=== PATIENT | male | born 1955 | race Caucasian/White ===

== ENCOUNTER 2020-07-16 17:47 | Inpatient (IN) | payer MEDICARE, MEDICAID ==
[~2020-07-16] VITALS: Ht 180.3 cm; Wt 62.4 kg
[~2020-07-16 17:47] MED LIST: AZI25OT PO; GABA-532 PO; LORA-269 PO; OXYC-145 PO; PRED10TA PO
[2020-07-16] MEDS ORDERED: ipratropium/albuterol 3ml nebule NEB PRN (19:25)
--- NOTE | 2020-07-16 19:26 | NUR ---
DR. BANKS AT BEDSIDE TO EVALUATE PT. HE REPORTS TO PT HE HAS A LEFT PNEUMOTHORAX. PT REPORTS HE HAS HAD THIS IN THE PAST AND DID HAVE A CHEST TUBE IN THE PAST. MD REPROTS PT WILL NEED A CHEST TUBE. PTS RA SATS 94% . PLACED ON 3 LITERS PER MD REQUEST AND SATS NOW 98%.
[2020-07-16 19:35] LABS: BASOPHILS % (AUTO) 0.9 % (0-1); EOSINOPHILS # (AUTO) 0.1 X10'3 (0-0.9); EOSINOPHILS % (AUTO) 1.5 % (0-6); HEMATOCRIT 39.1 % (42.0-52.0); HEMOGLOBIN 13.3 g/dl (14.0-17.9); LYMPHOCYTES # (AUTO) 1.1 X10'3 (1.1-4.8); LYMPHOCYTES % (AUTO) 22.1 % (21-51); MEAN CORPUSCULAR HEMOGLOBIN 32.8 PG (27.0-31.0); MEAN CORPUSCULAR HGB CONC 34.1 g/dL (33.0-36.5); MEAN CORPUSCULAR VOLUME 96.2 FL (78-98); MEAN PLATELET VOLUME 6.8 FL (7.4-10.4); MONOCYTES # (AUTO) 1.1 X10'3 (0-0.9); MONOCYTES % (AUTO) 22.7 % (2-12); NEUTROPHILS # (AUTO) 2.7 X10'3 (1.8-7.7); NEUTROPHILS % (AUTO) 52.8 % (42-75); PLATELET COUNT 233 X10'3 (140-440); RED BLOOD COUNT 4.07 X10'6 (4.70-6.10); RED CELL DISTRIBUTION WIDTH 14.8 % (11.5-14.5)
[2020-07-16 19:49] LABS: ALANINE AMINOTRANSFERASE 56 U/L (12-78); ALBUMIN 3.9 G/DL (3.4-5.0); ALBUMIN/GLOBULIN RATIO 0.9 (1.1-1.5); ALKALINE PHOSPHATASE 81 IU/L (46-116); ANION GAP 2 (8-16); ASPARTATE AMINO TRANSFERASE 48 U/L (10-37); BILIRUBIN,TOTAL 0.5 MG/DL (0.1-1.0); BLOOD UREA NITROGEN 7 MG/DL (7-18); BUN/CREATININE RATIO 11.7 (5.4-32.0); CALCIUM 9.1 MG/DL (8.5-10.1); CHLORIDE 88 MMOL/L (99-107); GLUCOSE 76 MG/DL (70-104); POTASSIUM 3.8 MMOL/L (3.5-5.1); TOTAL CARBON DIOXIDE 29.7 MMOL/L (24-32); TOTAL PROTEIN 8.2 G/DL (6.4-8.2); eGFR > 90 ML/MIN
[2020-07-16 19:51] LABS: SODIUM 120 MMOL/L (135-145)
[2020-07-16 19:56] LABS: C-REACTIVE PROTEIN 0.87 MG/DL (0.0-0.5); LACTATE DEHYDROGENASE 166 U/L (85-227)
[2020-07-16 20:17] LABS: CLARITY,URINE CLEAR (Clear); COLOR,URINE YELLOW (Yellow); GLUCOSE, URINE NEGATIVE (Neg); KETONES,URINE TRACE mg/dl (Neg); LEUKOCYTE ESTERASE ,URINE NEGATIVE (Neg); NITRITES, URINE NEGATIVE (Neg); OCCULT BLOOD,URINE TRACE-INTACT (Neg); PH,URINE 6.5 (4.8-8.0); PROTEIN,URINE 30 mg/dl (Neg); UROBILINOGEN,URINE 0.2 E.U/dL (0.2-1.0)
[2020-07-16 20:18] LABS: UA COLLECTION TYPE URINAL
--- NOTE | 2020-07-16 20:21 | NUR ---
PT IN ROOM NOW, BACK FROM CHEST CT. DR. BANKS AWAITING READ FROM CT FOR FURTHER PLAN FOR CHEST TUBE PLACMEENT.
--- NOTE | 2020-07-16 20:41 | NUR ---
relieving RN for break, pt is resting quietly on gurney, waiting for CT results, pursed lip breathing, on 3 liters 02 nasal cannula, no resp distress, talking 5-6 word sentences, gave pt warm blanket
--- NOTE | 2020-07-16 20:45 | NUR ---
COVID SWAB NEGATIVE. PT TAKEN OUT OF ISOLATION PRECATIONS. PT IS A&OX4 AND POLITE AND COOPERATIVE. SATS ON 3 L 97%. rr 28-30.
[2020-07-16 20:51] LABS: SQUAMOUS EPITHELIAL CELL,UR FEW /LPF (FEW)
[2020-07-16 20:52] LABS: BACTERIA,URINE 1+ /HPF (Neg); WBC,URINE 0-4 /HPF (0-4)
[2020-07-16 20:53] LABS: CELLULAR CAST 0-4 /LPF (NEGATIVE); RBC,URINE 0-2 /HPF (0-2)
[2020-07-16] MEDS ORDERED: NO HOME MEDS (21:07)
--- NOTE | 2020-07-16 21:07 | NUR ---
PT HAS NO CURRENT PERSCRIPTIONS. STATES HE DOES NOT HAVE A PCP AND HAS BEEN USING THE MEDICATIONS THAT WERE PERSCRIBED TO HIM BY US UPON HIS LAST DC "A MONTH OR TWO AGO". THIS WAS AND MDI AND NEBULIZER TREATMENTS, HE IS NOW OUT OF THEM. STATES HE HAS A WORKING NEBULIZER MACHINE BUT NEEDS NEW HOSES AND MOUTH PEICES. ALSO STATES HE NEEDS NEW HOSE AND MOUTH PEICE FOR HIS CPAP MACHINE. REPROTS HE DOES USE SUPP O2 PRN AND SOMETIMES AT NIGHT, BUT HAS NO CURRENT PERSCRIPTION.
--- NOTE | 2020-07-16 21:16 | NUR ---
verbal received for msiv 4 mg x1 now for pts chest pain from dr. paez.
[2020-07-16] MEDS ORDERED: morphine 4 MG/ML inj SYRINge IV ONE (21:20)
[2020-07-16 22:04] LABS: GIANT PLATELET FEW; PLATELET ESTIMATE NORMAL; TOTAL CELLS COUNTED 100
[2020-07-16 22:06] LABS: TARGET CELLS 1+; TEAR DROP CELLS FEW
[2020-07-16 22:07] LABS: TOXIC GRANULATION 1+; TOXIC VACUOLATION FEW
[2020-07-16] MEDS ORDERED: MIDAZolam 5mg/ml 2ml vial IV ONE (23:00)
--- NOTE | 2020-07-16 23:08 | NUR ---
DR. BANKS AND Usman MCKEON NOW AT BEDSIDE PERPARING TO PLACE CHEST TUBE. PT JUST GIVEN VERSED 4 MG IV. VSS.
--- NOTE | 2020-07-16 23:25 | NUR ---
Successful placement of Urasil chest tube to left upper chest. Post procedure cxr just completed. Pt remains sleepy after versed 4 mg, but is arousable and with stable vs and RR 14 and remains on 3 L NC at 98%.
[2020-07-17] MEDS ORDERED: acetaminophen 325mg tablet PO PRN (00:15)
[2020-07-17] MEDS ORDERED: magnesium hydroxide 30ml (MOM) UD suspension PO PRN (00:15)
[2020-07-17] MEDS ORDERED: mag hydrox/Alum hydrox/simeth 30ml oral suspension PO PRN (00:15)
--- NOTE | 2020-07-17 00:23 | NUR ---
PT PROVIDED SANDWICH AND CRACKERS AND MILK HE REPORTS HE IS HUNGRY. CURRENT VSS. PT WITH NO COMPLAINTS AT THIS TIME. AWAITING IPA.
[2020-07-17] MEDS: normal saline 1000ml 1,000 ML IV SCH ×2 (00:36→17:10)
[2020-07-17] MEDS: LORazepam 2 mg/ml vial IV PRN ×7 (01:03→20:55)
--- NOTE | 2020-07-17 02:29 | NUR ---
Pt with stable vs. Given ativan 2 mg iv and tylenol 650 mg 1 hr ago. Pt was havinig some hand tremors and anxiety and some moderate pain to his chest tube site. Pt now sleeping, RR 14 and sats on 2 liters nc 95%.
--- NOTE | 2020-07-17 02:35 | NUR ---
Pts fo2 sat finger probe adjusted and now showinig 100% on 2 liters nc. Pt is intermittently snoring.
--- NOTE | 2020-07-17 04:11 | NUR ---
Per Nursing Heating Fixture Tender, Pt to likely have a room assignment before shift change. Pt continues sleeping. VSS o2 sats 100% on 2 liters nc.
--- NOTE | 2020-07-17 04:42 | NUR ---
report to carlos surgical brace maker. iap 346b. ra sats 100% on 2 liters.
--- NOTE | 2020-07-17 04:43 | NUR ---
Patient in room ED 9. I have received report from Deidre Fraser in the Er and had the opportunity to ask questions and will assume patient care upon arrival to the floor.. Addendum: 07/17/20 at 0444 by Abbey Munroe RN Amended: Links added.
--- NOTE | 2020-07-17 05:05 | NUR ---
PT WITH CALL LIGHT IN PLACE GIVEN WATER VOIDED IN THE URINAL 120CC MED YELLOW URINE AND POSITIONED TO COMFORT.
[2020-07-17 05:17] VITALS: BP 137/87
--- NOTE | 2020-07-17 06:37 | NUR ---
Problems reprioritized. Patient report given, questions answered & plan of care reviewed with REBA MAXWELL. Addendum: 07/17/20 at 0638 by Abbey Munroe RN Amended: Links added.
[2020-07-17 07:00] VITALS: BP 133/92
--- NOTE | 2020-07-17 07:09 | NUR ---
Patient in room [facility] 346. I have received report from FROILAN MAXWELL and had the opportunity to ask questions and assume patient care.
[2020-07-17] MEDS ORDERED: LIDOcaine 1% W/epiNEPHrine 1:100,000 20ml vial ONE (08:00)
[2020-07-17] MEDS: thiamine 100mg tablet PO SCH (08:03)
[2020-07-17 09:36] LABS: BASOPHILS % (AUTO) 0.3 % (0-1); EOSINOPHILS # (AUTO) 0.1 X10'3 (0-0.9); HEMATOCRIT 35.9 % (42.0-52.0); HEMOGLOBIN 12.1 g/dl (14.0-17.9); LYMPHOCYTES # (AUTO) 0.8 X10'3 (1.1-4.8); LYMPHOCYTES % (AUTO) 12.6 % (21-51); MEAN CORPUSCULAR HEMOGLOBIN 32.8 PG (27.0-31.0); MEAN CORPUSCULAR HGB CONC 33.7 g/dL (33.0-36.5); MEAN CORPUSCULAR VOLUME 97.2 FL (78-98); MONOCYTES # (AUTO) 1.1 X10'3 (0-0.9); MONOCYTES % (AUTO) 18.4 % (2-12); NEUTROPHILS # (AUTO) 4.1 X10'3 (1.8-7.7); NEUTROPHILS % (AUTO) 66.7 % (42-75); PLATELET COUNT 210 X10'3 (140-440); WHITE BLOOD COUNT 6.2 X10'3 (4.5-11.0)
[2020-07-17 09:41] LABS: ALBUMIN 3.3 G/DL (3.4-5.0); ANION GAP 4 (8-16); BLOOD UREA NITROGEN 16 MG/DL (7-18); BUN/CREATININE RATIO 20.5 (5.4-32.0); CALCIUM 8.6 MG/DL (8.5-10.1); CHLORIDE 89 MMOL/L (99-107); CREATININE 0.78 MG/DL (0.60-1.10); GLUCOSE 106 MG/DL (70-104); POTASSIUM 3.9 MMOL/L (3.5-5.1); SODIUM 127 MMOL/L (135-145); TOTAL CARBON DIOXIDE 33.6 MMOL/L (24-32); eGFR > 90 ML/MIN
[2020-07-17 10:36] LABS: PLATELET ESTIMATE NORMAL; TOTAL CELLS COUNTED 100
[2020-07-17 11:00] VITALS: BP 129/81
--- NOTE | 2020-07-17 12:04 | NUR ---
Patient in room LOG[facility] 346. I have received report from Ky MAXWELL and had the opportunity to ask questions and assume patient care.
--- NOTE | 2020-07-17 12:33 | NUR ---
Malnutrition consult: Pt reports 2-13 lb wt loss with decreased appetite per malnutrition risk screen with RN. Current documented wt is stable with documented wt hx at previous admissions. Pt meeting estimated nutrient needs at this time documented with 100% PO intake on regular diet and provided with HS snacks last night d/t c/o hunger per RN notes. Pt with no documented decrease in muscle strength or edema. Appears WDWN per ED report. Pt currently lacks a minimum of two criteria for malnutrition. Will continue to follow. Addendum: 07/17/20 at [address] Amended: Links added.
--- NOTE | 2020-07-17 12:52 | NUR ---
reviewed student nurse charting
--- NOTE | 2020-07-17 14:52 | NUR ---
MESSAGE: [id number] Re: Jazz Rubi 346b Patient states he is having some back pain and is requesting Percocet 5mg he said that is what he normally takes for pain.
[2020-07-17 18:00] VITALS: BP 139/95
--- NOTE | 2020-07-17 18:07 | NUR ---
Problems reprioritized. Patient report given, questions answered & plan of care reviewed with Ky RN.
--- NOTE | 2020-07-17 18:41 | NUR ---
Problems reprioritized. Patient report given, questions answered & plan of care reviewed with Caleb MAXWELL.
[2020-07-17] MEDS: albuterol 2.5 MG/3 ML nebule NEB PRN (19:15)
--- NOTE | 2020-07-17 19:26 | NUR ---
Patient in room [facility] 346. I have received report from HANS Mcpherson and had the opportunity to ask questions and assume patient care.
[2020-07-18 00:33] VITALS: BP 125/86
[2020-07-18 04:51] LABS: BASOPHILS % (AUTO) 0.6 % (0-1); EOSINOPHILS # (AUTO) 0.1 X10'3 (0-0.9); EOSINOPHILS % (AUTO) 2.5 % (0-6); HEMATOCRIT 36.2 % (42.0-52.0); LYMPHOCYTES % (AUTO) 22.1 % (21-51); MEAN CORPUSCULAR HEMOGLOBIN 32.5 PG (27.0-31.0); MEAN CORPUSCULAR HGB CONC 33.3 g/dL (33.0-36.5); MEAN CORPUSCULAR VOLUME 97.8 FL (78-98); MEAN PLATELET VOLUME 7.1 FL (7.4-10.4); MONOCYTES % (AUTO) 21.7 % (2-12); NEUTROPHILS # (AUTO) 2.4 X10'3 (1.8-7.7); NEUTROPHILS % (AUTO) 53.1 % (42-75); PLATELET COUNT 186 X10'3 (140-440); RED CELL DISTRIBUTION WIDTH 14.5 % (11.5-14.5); WHITE BLOOD COUNT 4.4 X10'3 (4.5-11.0)
[2020-07-18 05:06] LABS: ALANINE AMINOTRANSFERASE 37 U/L (12-78); ALBUMIN 3.2 G/DL (3.4-5.0); ALBUMIN/GLOBULIN RATIO 0.9 (1.1-1.5); ALKALINE PHOSPHATASE 65 IU/L (46-116); ANION GAP 3 (8-16); ASPARTATE AMINO TRANSFERASE 32 U/L (10-37); BILIRUBIN,TOTAL 0.6 MG/DL (0.1-1.0); BLOOD UREA NITROGEN 11 MG/DL (7-18); BUN/CREATININE RATIO 15.7 (5.4-32.0); CALCIUM 8.2 MG/DL (8.5-10.1); CHLORIDE 94 MMOL/L (99-107); GLUCOSE 90 MG/DL (70-104); POTASSIUM 4.3 MMOL/L (3.5-5.1); SODIUM 127 MMOL/L (135-145); TOTAL CARBON DIOXIDE 29.8 MMOL/L (24-32); TOTAL PROTEIN 6.8 G/DL (6.4-8.2); eGFR > 90 ML/MIN
[2020-07-18] MEDS: LORazepam 2 mg/ml vial IV PRN (05:32)
--- NOTE | 2020-07-18 06:00 | NUR ---
Patient in room [facility] 346. I have received report from HANS Ellis and had the opportunity to ask questions and assume patient care.
--- NOTE | 2020-07-18 06:32 | NUR ---
Problems reprioritized. Patient report given, questions answered & plan of care reviewed with HANS Zelaya.
[2020-07-18 07:00] VITALS: BP 112/78
[2020-07-18] MEDS: thiamine 100mg tablet PO SCH (08:13)
[2020-07-18] MEDS: normal saline 1000ml 1,000 ML IV SCH ×3 (08:13→23:02)
[2020-07-18] MEDS: LORazepam 1 MG tablet PO PRN ×2 (08:17→18:36)
[2020-07-18 10:10] LABS: ANISOCYTOSIS FEW; PLATELET ESTIMATE NORMAL; TOTAL CELLS COUNTED 100
[2020-07-18 11:00] VITALS: BP 108/74
[2020-07-18] MEDS: albuterol 2.5 MG/3 ML nebule NEB PRN (16:24)
--- NOTE | 2020-07-18 17:06 | NUR ---
Student documentation: I have reviewed interventions, assessments performed and documented by [facility] Student Freida.
--- NOTE | 2020-07-18 17:06 | NUR ---
Student documentation: I have reviewed interventions, assessments performed and documented by [facility] Student Monse.
--- NOTE | 2020-07-18 18:46 | NUR ---
Problems reprioritized. Patient report given, questions answered & plan of care reviewed with Evangelina jay RN.
--- NOTE | 2020-07-18 18:48 | NUR ---
Patient in room LOG[facility] 346. I have received report from HANS Montaño and had the opportunity to ask questions and assume patient care.
[2020-07-18 19:00] VITALS: BP 148/86
[2020-07-18] MEDS: HYDROcodone/acetaminophen 5mg/325mg tablet PO PRN (21:05)
[2020-07-18] MEDS: Melatonin 3mg tablet PO SCH (21:06)
[2020-07-18 23:00] VITALS: BP 133/78
[2020-07-19] MEDS: HYDROcodone/acetaminophen 5mg/325mg tablet PO PRN ×4 (05:53→21:06)
--- NOTE | 2020-07-19 06:00 | NUR ---
Problems reprioritized. Patient report given, questions answered & plan of care reviewed with HANS Montaño.
--- NOTE | 2020-07-19 06:00 | NUR ---
Patient in room LOGAN 346. I have received report from Evangelina Du RN and had the opportunity to ask questions and assume patient care.
[2020-07-19 06:12] LABS: BASOPHILS % (AUTO) 0.7 % (0-1); EOSINOPHILS # (AUTO) 0.1 X10'3 (0-0.9); EOSINOPHILS % (AUTO) 2.4 % (0-6); HEMATOCRIT 33.4 % (42.0-52.0); HEMOGLOBIN 11.4 g/dl (14.0-17.9); LYMPHOCYTES # (AUTO) 0.9 X10'3 (1.1-4.8); LYMPHOCYTES % (AUTO) 20.4 % (21-51); MEAN CORPUSCULAR HEMOGLOBIN 33.8 PG (27.0-31.0); MEAN CORPUSCULAR HGB CONC 34.2 g/dL (33.0-36.5); MEAN CORPUSCULAR VOLUME 98.8 FL (78-98); MEAN PLATELET VOLUME 7.3 FL (7.4-10.4); MONOCYTES % (AUTO) 22.1 % (2-12); NEUTROPHILS # (AUTO) 2.4 X10'3 (1.8-7.7); NEUTROPHILS % (AUTO) 54.4 % (42-75); PLATELET COUNT 197 X10'3 (140-440); RED BLOOD COUNT 3.38 X10'6 (4.70-6.10); RED CELL DISTRIBUTION WIDTH 14.7 % (11.5-14.5); WHITE BLOOD COUNT 4.4 X10'3 (4.5-11.0)
[2020-07-19 06:14] LABS: ALANINE AMINOTRANSFERASE 34 U/L (12-78); ALBUMIN 2.9 G/DL (3.4-5.0); ALBUMIN/GLOBULIN RATIO 0.8 (1.1-1.5); ALKALINE PHOSPHATASE 56 IU/L (46-116); ANION GAP 3 (8-16); ASPARTATE AMINO TRANSFERASE 29 U/L (10-37); BILIRUBIN,TOTAL 0.5 MG/DL (0.1-1.0); BLOOD UREA NITROGEN 11 MG/DL (7-18); BUN/CREATININE RATIO 15.1 (5.4-32.0); CHLORIDE 93 MMOL/L (99-107); CREATININE 0.73 MG/DL (0.60-1.10); GLUCOSE 98 MG/DL (70-104); POTASSIUM 4.2 MMOL/L (3.5-5.1); SODIUM 126 MMOL/L (135-145); TOTAL CARBON DIOXIDE 29.9 MMOL/L (24-32); TOTAL PROTEIN 6.4 G/DL (6.4-8.2); eGFR > 90 ML/MIN
[2020-07-19 07:11] LABS: TOTAL CELLS COUNTED 100
[2020-07-19 07:12] LABS: PLATELET ESTIMATE NORMAL
[2020-07-19] MEDS: LORazepam 1 MG tablet PO PRN ×2 (07:22→23:09)
[2020-07-19] MEDS: thiamine 100mg tablet PO SCH (07:22)
[2020-07-19 08:00] VITALS: BP 144/97
[2020-07-19 12:00] VITALS: BP 121/87
[2020-07-19] MEDS: normal saline 1000ml 1,000 ML IV SCH (14:38)
--- NOTE | 2020-07-19 17:33 | NUR ---
Student documentation: I have reviewed all interventions, assessments performed and documented by Monse FULLER from [facility].
[2020-07-19 18:00] VITALS: BP 154/90
--- NOTE | 2020-07-19 18:25 | NUR ---
Patient in room LOG[facility] 346. I have received report from HANS Montaño and had the opportunity to ask questions and assume patient care.
--- NOTE | 2020-07-19 18:26 | NUR ---
Problems reprioritized. Patient report given, questions answered & plan of care reviewed with HANS Carrillo.
[2020-07-19] MEDS: Melatonin 3mg tablet PO SCH (20:35)
[2020-07-20] VITALS (22 sets, daily range): BP systolic 113–207; BP diastolic 59–143
[2020-07-20] MEDS: normal saline 1000ml 1,000 ML IV SCH ×2 (03:52→22:03)
[2020-07-20] MEDS ORDERED: famotidine 10mg tablet PO ONE (06:00)
[2020-07-20] MEDS ORDERED: ringers solution, lacted 1,000 ML IV ONE (06:00)
[2020-07-20 06:11] LABS: BASOPHILS % (AUTO) 0.6 % (0-1); EOSINOPHILS # (AUTO) 0.1 X10'3 (0-0.9); EOSINOPHILS % (AUTO) 3.4 % (0-6); HEMOGLOBIN 12.1 g/dl (14.0-17.9); LYMPHOCYTES # (AUTO) 0.8 X10'3 (1.1-4.8); LYMPHOCYTES % (AUTO) 20.1 % (21-51); MEAN CORPUSCULAR HEMOGLOBIN 32.9 PG (27.0-31.0); MEAN CORPUSCULAR HGB CONC 33.5 g/dL (33.0-36.5); MEAN PLATELET VOLUME 7.1 FL (7.4-10.4); MONOCYTES % (AUTO) 23.8 % (2-12); NEUTROPHILS # (AUTO) 2.1 X10'3 (1.8-7.7); NEUTROPHILS % (AUTO) 52.1 % (42-75); PLATELET COUNT 211 X10'3 (140-440); RED BLOOD COUNT 3.67 X10'6 (4.70-6.10); RED CELL DISTRIBUTION WIDTH 14.5 % (11.5-14.5); WHITE BLOOD COUNT 4.1 X10'3 (4.5-11.0)
[2020-07-20 06:21] LABS: ALANINE AMINOTRANSFERASE 41 U/L (12-78); ALBUMIN 3.1 G/DL (3.4-5.0); ALBUMIN/GLOBULIN RATIO 0.8 (1.1-1.5); ALKALINE PHOSPHATASE 58 IU/L (46-116); ANION GAP 4 (8-16); ASPARTATE AMINO TRANSFERASE 39 U/L (10-37); BILIRUBIN,TOTAL 0.6 MG/DL (0.1-1.0); BLOOD UREA NITROGEN 10 MG/DL (7-18); BUN/CREATININE RATIO 13.9 (5.4-32.0); CALCIUM 8.3 MG/DL (8.5-10.1); CHLORIDE 94 MMOL/L (99-107); CREATININE 0.72 MG/DL (0.60-1.10); GLUCOSE 82 MG/DL (70-104); POTASSIUM 4.5 MMOL/L (3.5-5.1); SODIUM 127 MMOL/L (135-145); TOTAL CARBON DIOXIDE 28.9 MMOL/L (24-32); TOTAL PROTEIN 6.9 G/DL (6.4-8.2); eGFR > 90 ML/MIN
--- NOTE | 2020-07-20 06:30 | NUR ---
Problems reprioritized. Patient report given, questions answered & plan of care reviewed with HANS Villagomez.
--- NOTE | 2020-07-20 06:45 | NUR ---
Patient in room LOG[facility] 346. I have received report from Lorena MAXWELL and had the opportunity to ask questions and assume patient care.
[2020-07-20] MEDS: thiamine 100mg tablet PO SCH (08:24)
--- NOTE | 2020-07-20 08:32 | NUR ---
PAGER ID: [phone] MESSAGE: [email or web address], Henrik Rubi. Pt has allergies to Hydrocodone and Codeine, yet has [place] ordered for pain and has reported itching after taking it. Please order something else for pain management. Thank you! Dahlia [phone] Surgical
--- NOTE | 2020-07-20 10:29 | NUR ---
Dr Powell at bedside, reviewed pt's med history and prior admits and states it is safe to give pt Clinton, continue pain meds as ordered.
[2020-07-20] MEDS ORDERED: BUPIVAcaine/PF 2.5 mg/ml (0.25%) 30ml vial ONE (10:42)
[2020-07-20] MEDS ORDERED: BUPIVAcaine/PF 2.5mg/ml (0.25%) 10ml vial ONE (10:42)
[2020-07-20] MEDS ORDERED: sterile Talc 3 GM powder vial (for IntraPleural Use ONLY) ONE (10:42)
[2020-07-20] MEDS: HYDROcodone/acetaminophen 5mg/325mg tablet PO PRN (10:43)
[2020-07-20] MEDS ORDERED: BUPIVACAINE liposomal/PF 13.3 MG/ML vial IM ONE (10:43)
--- NOTE | 2020-07-20 11:30 | NUR ---
1100 Report phoned to Graeme MAXWELL in Recovery, with opportunity for him to ask questions, answers given. Pt down to OR 1140 via hospital bed, accompanied by hospital staff IV and chest tube intact and patent.
[2020-07-20] MEDS ORDERED: LIDOcaine 1% (10mg/ml) 2ml vial ONE (11:46)
[2020-07-20] MEDS ORDERED: fentaNYL /PF 50mcg/ml 5ml ampule ONE (11:55)
[2020-07-20] MEDS ORDERED: MIDAZolam 5mg/5ml vial ONE (11:55)
[2020-07-20] MEDS ORDERED: rocuronium 10mg/ml inj IV ONE ×3 (11:56→14:05)
[2020-07-20] MEDS ORDERED: LIDOcaine 2% (20mg/ml) 5ml vial ONE (11:56)
[2020-07-20] MEDS ORDERED: propofol inj 20 ML IV ONE (11:56)
[2020-07-20] MEDS ORDERED: ondansetron/PF 4mg/2ml inj ONE (11:56)
[2020-07-20] MEDS ORDERED: dexamethasone sod phosphate 4mg/ml inj. ONE (11:58)
[2020-07-20] MEDS ORDERED: phenylephrine 10mg/ml inj. ONE (11:58)
[2020-07-20] MEDS ORDERED: sevoflurane 250ml liquid IH ONE (11:58)
[2020-07-20 12:10] LABS: PRE OP PROTIME 10.3 SECONDS (9.0-12.0)
[2020-07-20] MEDS ORDERED: ceFAZolin 1000mg inj ONE ×2 (12:26)
[2020-07-20] MEDS ORDERED: albumin (Human) 5% 250ml 250 ML IV ONE ×2 (12:52)
[2020-07-20] MEDS ORDERED: labetalol 20mg/4ml (5mg/ml) syringe IV ONE (13:10)
[2020-07-20] MEDS ORDERED: ondansetron/PF 4mg/2ml inj IV PRN ×2 (13:40→16:25)
[2020-07-20] MEDS ORDERED: hydrALAZINE 20mg/ml inj. IV PRN (13:40)
[2020-07-20] MEDS ORDERED: midazolam 100mg in NS 100ml 100 ML IV SCH (13:40)
[2020-07-20] MEDS ORDERED: fentaNYL/PF 50MCG/1 ML 2ML syringe IV PRN ×2 (13:40)
[2020-07-20] MEDS ORDERED: ringers solution, lacted 1,000 ML IV SCH (13:40)
[2020-07-20] MEDS ORDERED: HYDROmorphone inj. 0.5 MG/0.5 ML DISP.SYRIN IV PRN ×2 (13:40)
[2020-07-20] MEDS ORDERED: fentaNYL/PF 50MCG/1 ML 2ML syringe ONE (14:28)
--- NOTE | 2020-07-20 15:30 | NUR ---
Received from OR via ICU bed, accompanied by Anesthesiologist Sheng and report given by Anesthesiolgist. VS stble, ART line zeroed and good waveform. PIV x2 LR IVF running, versed and fentanyl running per orders. Ventilator settings per orders RT at bedside hooking pt up to vent. Melgar cath draining yellow urine. Chest tube to left lateral charge, to low continuous suction no drainage. SCDs on, BLL, restraints on.
[2020-07-20] MEDS: FENTANYL-0.9 % NACL/PF 100 ML IV PRN (15:45)
[2020-07-20 15:55] LABS: ABG BASE EXCESS 0.4 mmol/L (-2.0-2.0); ABG HCO3 24.5 mmol/L (22.0-26.0); ABG OXYGEN SATURATION 99.6 % (94-97); ABG PCO2 (T) 37.9 mmHg (35.0-48.0); ABG PO2 (T) 313.8 mmHg (75.0-100.0); FCOHb 0.3 % (0.0-3.9); FLOW 30 L/min; FMetHb 0.3 % (0.0-1.5); PEEP 5 cm H2O; RESPIRATORY RATE 12 b/min; TIDAL VOLUME 600 mL; TOTAL HEMOGLOBIN 11.3 G/dl (14.0-18.0)
[2020-07-20] MEDS ORDERED: niCARDipine-NS 40mg/200ml IVPB 250 ML IV SCH (15:55)
[2020-07-20] MEDS: labetalol 20mg/4ml (5mg/ml) syringe IV PRN ×3 (15:55→16:08)
[2020-07-20] MEDS ORDERED: niCARDipine-NS 40mg/200ml IVPB 200 ML IV ONE (15:59)
[2020-07-20] MEDS ORDERED: niCARdipine I.V. 50 MG in normal saline 250ml IV soln 230 ML IV SCH (16:00)
--- NOTE | 2020-07-20 16:10 | NUR ---
Pt became hypertensive, given labetolol and continues to increase. Dr Mohan at bedside, ordered Cardene drip. Anesthesia was called, he said okay to give another dose of labetalol, then hydralazine, and to continue with orders to use cardene.
[2020-07-20] MEDS ORDERED: propofol 1000mg/100ml bottle 100 ML IV ONE (16:19)
--- NOTE | 2020-07-20 16:20 | NUR ---
Dr Hauser at bedside, stated to DC versed and switch with propofol or "pt will be asleep till Thursday". Also states to bolus with 50mcg of fentanyl and to use hydralazine for BP if needed.
[2020-07-20] MEDS ORDERED: metoclopramide 5 mg/ml inj IV PRN (16:25)
[2020-07-20] MEDS ORDERED: naloxone 0.4 mg/ml inj IV PRN (16:25)
[2020-07-20] MEDS ORDERED: CADD PCA waste documentation MC PRN (16:25)
[2020-07-20] MEDS: propofol 1000mg/100ml bottle 100 ML IV SCH ×2 (16:29→21:44)
--- NOTE | 2020-07-20 16:30 | NUR ---
Pt belongings taken to pt's room 2015 by PCT. Pt to room 2015 from Recovery.
--- NOTE | 2020-07-20 16:31 | NUR ---
Pt belongings: Elvin, tshjoeyt, socks, shoes, wallet taken to pt's room 2015 by PCT
--- NOTE | 2020-07-20 16:40 | NUR ---
Pt care handed over to Abhishek MAXWELL, pt remains in 2014. Pt VS stable, report given, BLL. Belongings and chart at bedside. Drips switched over to new orders.
--- NOTE | 2020-07-20 16:40 | NUR ---
Received patient report from Christine MAXWELL. Patient's vital signs stable.
[2020-07-20] MEDS: nicotine 21mg patch - 24 hr TD SCH (17:28)
--- NOTE | 2020-07-20 18:13 | NUR ---
Problems reprioritized. Patient report given, questions answered & plan of care reviewed with Jaydon MAXWELL.
[2020-07-20] MEDS: ipratropium/albuterol 3ml nebule NEB SCH ×2 (19:16→23:10)
[2020-07-20] MEDS: Melatonin 3mg tablet PO SCH (21:00)
[2020-07-20] MEDS: gabapentin 300mg capsule PO SCH (22:03)
[2020-07-20] MEDS: ceFAZolin 1GM/D5W- ADD-VANTAGE 50 ML IV SCH (23:58)
[2020-07-21] VITALS (25 sets, daily range): BP systolic 16–142; BP diastolic 44–87
[2020-07-21] MEDS ORDERED: ceFAZolin 1GM/D5W- ADD-VANTAGE 50 ML IV SCH
[2020-07-21] MEDS: FENTANYL-0.9 % NACL/PF 100 ML IV PRN (01:43)
[2020-07-21] MEDS: ipratropium/albuterol 3ml nebule NEB SCH ×6 (02:30→23:19)
[2020-07-21 03:07] LABS: ALANINE AMINOTRANSFERASE 34 U/L (12-78); ALBUMIN 2.9 G/DL (3.4-5.0); ALBUMIN/GLOBULIN RATIO 0.9 (1.1-1.5); ALKALINE PHOSPHATASE 44 IU/L (46-116); ANION GAP 7 (8-16); ASPARTATE AMINO TRANSFERASE 34 U/L (10-37); BILIRUBIN,TOTAL 0.5 MG/DL (0.1-1.0); BLOOD UREA NITROGEN 15 MG/DL (7-18); BUN/CREATININE RATIO 17.9 (5.4-32.0); CALCIUM 7.8 MG/DL (8.5-10.1); CHLORIDE 93 MMOL/L (99-107); CREATININE 0.84 MG/DL (0.60-1.10); GLUCOSE 160 MG/DL (70-104); POTASSIUM 4.1 MMOL/L (3.5-5.1); SODIUM 125 MMOL/L (135-145); TOTAL CARBON DIOXIDE 24.7 MMOL/L (24-32); TRIGLYCERIDES 42 MG/DL (20-135); eGFR > 90 ML/MIN
[2020-07-21 03:08] LABS: BASOPHILS % (AUTO) 0.2 % (0-1); EOSINOPHILS % (AUTO) 0 % (0-6); HEMATOCRIT 32.1 % (42.0-52.0); HEMOGLOBIN 10.8 g/dl (14.0-17.9); LYMPHOCYTES # (AUTO) 0.4 X10'3 (1.1-4.8); LYMPHOCYTES % (AUTO) 5.6 % (21-51); MEAN CORPUSCULAR HEMOGLOBIN 33.1 PG (27.0-31.0); MEAN CORPUSCULAR HGB CONC 33.6 g/dL (33.0-36.5); MEAN CORPUSCULAR VOLUME 98.4 FL (78-98); MEAN PLATELET VOLUME 7.2 FL (7.4-10.4); MONOCYTES # (AUTO) 0.6 X10'3 (0-0.9); NEUTROPHILS # (AUTO) 6.1 X10'3 (1.8-7.7); NEUTROPHILS % (AUTO) 85.2 % (42-75); PLATELET COUNT 220 X10'3 (140-440); RED BLOOD COUNT 3.26 X10'6 (4.70-6.10); RED CELL DISTRIBUTION WIDTH 14.6 % (11.5-14.5); WHITE BLOOD COUNT 7.2 X10'3 (4.5-11.0)
[2020-07-21 03:56] LABS: ABG BASE EXCESS -2.1 mmol/L (-2.0-2.0); ABG HCO3 21.8 mmol/L (22.0-26.0); ABG OXYGEN SATURATION 98.8 % (94-97); ABG PCO2 (T) 34.1 mmHg (35.0-48.0); ABG PO2 (T) 134.1 mmHg (75.0-100.0); FCOHb 0.5 % (0.0-3.9); FMetHb 0.2 % (0.0-1.5); FO2Hb 98.1 % (94-97); PATIENT TEMPERATURE 36.7; PEEP 5 cm H2O; RESPIRATORY RATE 12 b/min; TIDAL VOLUME 600 mL; TOTAL HEMOGLOBIN 11.4 G/dl (14.0-18.0)
[2020-07-21] MEDS: gabapentin 300mg capsule PO SCH ×2 (09:07→19:43)
[2020-07-21] MEDS: thiamine 100mg tablet PO SCH (09:07)
[2020-07-21] MEDS: nicotine 21mg patch - 24 hr TD SCH (09:08)
[2020-07-21] MEDS: ceFAZolin 1GM/D5W- ADD-VANTAGE 50 ML IV SCH (09:08)
[2020-07-21] MEDS ORDERED: LORazepam 2 mg/ml vial IV PRN ×4 (09:25)
[2020-07-21] MEDS ORDERED: haloperidol lactate 5mg/ml inj IM PRN ×3 (09:25)
[2020-07-21] MEDS ORDERED: dextrose 50%-water 50ml dispensing syringe IV PRN (09:25)
[2020-07-21] MEDS ORDERED: haloperidol 5mg tablet PO PRN ×2 (09:25)
[2020-07-21] MEDS: normal saline 1000ml 1,000 ML IV SCH (10:55)
[2020-07-21] MEDS: HYDROcodone/acetaminophen 10/325mg tab PO PRN ×2 (11:12→19:42)
--- NOTE | 2020-07-21 14:28 | NUR ---
patient's nixon D/C'd by break RN, Margaret, at 1000. patient bladder scanned with 66cc residual. will continue to monitor.
--- NOTE | 2020-07-21 18:11 | NUR ---
Patient in room CICU 2014. I have received report from Karen MAXWELL and had the opportunity to ask questions and assume patient care.
[2020-07-21] MEDS: Melatonin 3mg tablet PO SCH (21:06)
[2020-07-22] VITALS (24 sets, daily range): BP systolic 91–133; BP diastolic 56–87
[2020-07-22] MEDS: HYDROcodone/acetaminophen 10/325mg tab PO PRN ×4 (02:34→20:05)
[2020-07-22] MEDS: ipratropium/albuterol 3ml nebule NEB SCH ×6 (03:18→23:08)
[2020-07-22 05:45] LABS: BASOPHILS % (AUTO) 0.2 % (0-1); EOSINOPHILS # (AUTO) 0.1 X10'3 (0-0.9); EOSINOPHILS % (AUTO) 0.8 % (0-6); HEMATOCRIT 32.4 % (42.0-52.0); LYMPHOCYTES # (AUTO) 0.8 X10'3 (1.1-4.8); LYMPHOCYTES % (AUTO) 11.5 % (21-51); MEAN CORPUSCULAR HEMOGLOBIN 33.3 PG (27.0-31.0); MEAN CORPUSCULAR HGB CONC 33.8 g/dL (33.0-36.5); MEAN CORPUSCULAR VOLUME 98.4 FL (78-98); MEAN PLATELET VOLUME 7.1 FL (7.4-10.4); MONOCYTES # (AUTO) 1.7 X10'3 (0-0.9); MONOCYTES % (AUTO) 22.7 % (2-12); NEUTROPHILS # (AUTO) 4.8 X10'3 (1.8-7.7); NEUTROPHILS % (AUTO) 64.8 % (42-75); PLATELET COUNT 229 X10'3 (140-440); RED CELL DISTRIBUTION WIDTH 14.5 % (11.5-14.5); WHITE BLOOD COUNT 7.4 X10'3 (4.5-11.0)
[2020-07-22 06:00] LABS: ALANINE AMINOTRANSFERASE 29 U/L (12-78); ALBUMIN/GLOBULIN RATIO 0.8 (1.1-1.5); ALKALINE PHOSPHATASE 51 IU/L (46-116); AMYLASE 26 U/L (25-115); ANION GAP 5 (8-16); ASPARTATE AMINO TRANSFERASE 30 U/L (10-37); BILIRUBIN,TOTAL 0.5 MG/DL (0.1-1.0); BLOOD UREA NITROGEN 23 MG/DL (7-18); BUN/CREATININE RATIO 23.7 (5.4-32.0); CALCIUM 8.2 MG/DL (8.5-10.1); CHLORIDE 92 MMOL/L (99-107); CREATININE 0.97 MG/DL (0.60-1.10); GLUCOSE 122 MG/DL (70-104); LIPASE 86 U/L (73-393); MAGNESIUM 1.7 MG/DL (1.5-2.4); PHOSPHORUS 3.2 MG/DL (2.3-4.5); POTASSIUM 3.8 MMOL/L (3.5-5.1); SODIUM 126 MMOL/L (135-145); TOTAL PROTEIN 6.6 G/DL (6.4-8.2); eGFR 77 ML/MIN
--- NOTE | 2020-07-22 06:30 | NUR ---
Patient in room CICU 2014. I have received report from HANS ROGEL and had the opportunity to ask questions and assume patient care.
--- NOTE | 2020-07-22 06:40 | NUR ---
Problems reprioritized. Patient report given, questions answered & plan of care reviewed with Travis RN.
[2020-07-22 07:54] LABS: TOTAL CELLS COUNTED 100
[2020-07-22 07:55] LABS: PLATELET ESTIMATE NORMAL; POIKILOCYTOSIS FEW
[2020-07-22] MEDS: gabapentin 300mg capsule PO SCH (08:59)
[2020-07-22] MEDS: thiamine 100mg tablet PO SCH (08:59)
[2020-07-22] MEDS: nicotine 21mg patch - 24 hr TD SCH (09:01)
[2020-07-22] MEDS ORDERED: HYDROmorphone inj. 0.5 MG/0.5 ML DISP.SYRIN IV ONE (10:10)
--- NOTE | 2020-07-22 10:20 | NUR ---
DR. SAUNDERS IN, NOTIFIED OF NORCO ORDERS WITH HYDROCODONE ALLERGY LISTED. STALILLI"IS OKAY, HE TAKES NORCO OUT PATIENT".
--- NOTE | 2020-07-22 11:27 | NUR ---
Initial: Pt admit DX pneumothorax s/p bullectomy w/ pleurodesis per surgeon note. PO 75-100% regular diet in addition to one beer BID per surgeon order. Meeting wound healing needs given wt and PO. Moderate BM 07/19 receiving routine colace. Will continue to monitor for additional protein needs post-op. Rec: 1. continue regular diet; one beer BID per surgeon 2. monitor for additional protein needs IF PO declines 3. routine bowel care 4. wt per rx Addendum: 07/22/20 at [address] Amended: Links added.
--- NOTE | 2020-07-22 18:12 | NUR ---
Problems reprioritized. Patient report given, questions answered & plan of care reviewed with HANS ROGEL.
--- NOTE | 2020-07-22 18:30 | NUR ---
Patient in room CICU 2014. I have received report from Travis MAXWELL and had the opportunity to ask questions and assume patient care.
[2020-07-22] MEDS: Melatonin 3mg tablet PO SCH (20:05)
[2020-07-22] MEDS: ondansetron/PF 4mg/2ml inj IV PRN (21:27)
[2020-07-23] VITALS (14 sets, daily range): BP systolic 100–156; BP diastolic 65–95
[2020-07-23] MEDS: ipratropium/albuterol 3ml nebule NEB SCH ×6 (03:08→23:00)
[2020-07-23] MEDS: HYDROcodone/acetaminophen 10/325mg tab PO PRN ×3 (04:33→19:29)
--- NOTE | 2020-07-23 06:06 | NUR ---
Patient in room CICU 2014. I have received report from chemo dubois and had the opportunity to ask questions and assume patient care.
--- NOTE | 2020-07-23 06:15 | NUR ---
Patient in room CICU 2014. I have received report from silvino flynn and had the opportunity to ask questions and assume patient care.
--- NOTE | 2020-07-23 09:11 | NUR ---
Patient in room CICU 2014, going to RM 310. I have received report from HANS Luther and had the opportunity to ask questions and assume patient care.
[2020-07-23] MEDS: thiamine 100mg tablet PO SCH (09:19)
[2020-07-23] MEDS: nicotine 21mg patch - 24 hr TD SCH (09:19)
[2020-07-23] MEDS ORDERED: LORazepam 1 MG tablet PO PRN (09:25)
[2020-07-23] MEDS ORDERED: LORazepam 2 mg/ml vial IV PRN (09:25)
[2020-07-23 09:42] LABS: AMYLASE 23 U/L (25-115); LIPASE < 50 U/L (73-393); MAGNESIUM 1.8 MG/DL (1.5-2.4); PHOSPHORUS 2.5 MG/DL (2.3-4.5)
--- NOTE | 2020-07-23 10:00 | NUR ---
Problems reprioritized. Patient report given, questions answered & plan of care reviewed with silvino queen
--- NOTE | 2020-07-23 10:00 | NUR ---
pt transferred with all belongings to room 310,acce unit
[2020-07-23] MEDS: ondansetron/PF 4mg/2ml inj IV PRN ×2 (13:23→19:29)
[2020-07-23] MEDS ORDERED: HYDROmorphone/PF 0.2 MG/ML SYRINGE IV PRN (13:35)
--- NOTE | 2020-07-23 18:00 | NUR ---
Problems reprioritized. Patient report given, questions answered & plan of care reviewed with HANS Daly & Lilibeth RN.
--- NOTE | 2020-07-23 18:01 | NUR ---
Patient in room MED 310. I have received report from Mariya MAXWELL and had the opportunity to ask questions and assume patient care.
[2020-07-23] MEDS: Melatonin 3mg tablet PO SCH (19:27)
[2020-07-24 02:00] VITALS: BP 146/88
[2020-07-24] MEDS: ipratropium/albuterol 3ml nebule NEB SCH (03:34)
--- NOTE | 2020-07-24 04:20 | NUR ---
Without notifying nursing staff, patient disconnected himself from ECG monitor, took off his O2, and changed into his clothes and walked out of the room at 0405. Patient left AMA, after having his IV removed by Alka MAXWELL, and signing the AMA form.
--- NOTE | 2020-07-24 04:36 | NUR ---
Patient was seen in the hallway disconnected from all equipment and fully dressed. Staff asked if he needed help and he said, "No I just want to leave." Nursing staff asked what he needed so he would stay and he continued to walk away and insist on leaving. Patient walked to PCU to the back stairs where security met him and he allowed me to take out his IV and he signed an AMA paper. Patient was A&O x4 and was repeatedly asked to stay but denied.
--- NOTE | 2020-07-24 04:38 | NUR ---
At 0437, RN notified October that patient, Henrik Rubi left AMA.
--- NOTE | 2020-07-24 04:41 | NUR ---
The patient went AMA at 0405. I was at my break as it happened. Branden, the charge nurse spoke with the patient and according to Branden, he signed the AMA. The IV was pulled out and the patient escorted by [facility] security. Please refer to Branden, and Brianna notes regarding the issue.
--- NOTE | 2020-07-24 05:52 | NUR ---
[facility]. [facility] and left the phone number at [phone]. Waiting for response. Addendum: 07/24/20 at 0555 by Malika Jefferson RN Dr. Hauser answered back and acknowledged that the patient left AMA.
[2020-07-25] MEDS ORDERED: LORazepam 1 MG tablet PO PRN (09:25)
[2020-07-25] MEDS ORDERED: LORazepam 2 mg/ml vial IV PRN (09:25)
== END 2020-07-24 04:30 | disposition left against medical advice (07) | DRG 164 ==
LOC: EDBD 17:49 → ER 17:49 → ED HOLD 07-17 00:13 → SUR 3N 07-17 04:45 → PACU 07-20 13:50 → CICU 2S 07-20 14:19 → MED 3N 07-23 10:15
PROVIDERS: ADMIT Internal Medicine; ATTEND Family Medicine
PROC: 0W9B30Z Drainage of Left Pleural Cavity with Drainage Device, Percutaneous Approach (ICD-10-PCS; 2020-07-16)
PROC: 0BNG4ZZ Release Left Upper Lung Lobe, Percutaneous Endoscopic Approach (ICD-10-PCS; 2020-07-20)
PROC: 8E0W4CZ Robotic Assisted Procedure of Trunk Region, Percutaneous Endoscopic Approach (ICD-10-PCS; 2020-07-20)
PROC: 3E0L4GC Introduction of Other Therapeutic Substance into Pleural Cavity, Percutaneous Endoscopic Approach (ICD-10-PCS; 2020-07-20)
PROC: 07B74ZZ Excision of Thorax Lymphatic, Percutaneous Endoscopic Approach (ICD-10-PCS; 2020-07-20)
PROC: 0BTG4ZZ Resection of Left Upper Lung Lobe, Percutaneous Endoscopic Approach (ICD-10-PCS; principal; 2020-07-20 11:58)
DX: C34.12 Malignant neoplasm of upper lobe, left bronchus or lung (principal); J93.83 Other pneumothorax; E22.2 Syndrome of inappropriate secretion of antidiuretic hormone; J94.8 Other specified pleural conditions; J44.1 Chronic obstructive pulmonary disease with (acute) exacerbation; J98.4 Other disorders of lung; Z53.29 Procedure and treatment not carried out because of patient's decision for other reasons; F10.10 Alcohol abuse, uncomplicated; Z20.828 Contact with and (suspected) exposure to other viral communicable diseases; F17.200 Nicotine dependence, unspecified, uncomplicated; I10 Essential (primary) hypertension; R06.03 Acute respiratory distress; Z88.5 Allergy status to narcotic agent
CPT/HCPCS: 32551; 36415; 36600; 71045; 71250; 80048; 80053; 81001; 82150; 82803; 82948; 83605; 83615; 83690; 83735; 83880; 83930; 84100; 84145; 84478; 85007; 85018; 85025; 85384; 85610; 85730; 86140; 87040; 87081; 87635; 88305; 88307; 88342; 88360; 93005; 94002; 94003; 94640; 94667; 94668; 94760; 96374; 96375; 97116; 97161; 97530; 99291; A4618; A6258; A6402; A7000; A7048; C1758; C9290; G0378; J0690; J1100; J1170; J2001; J2060; J2250; J2270; J2370; J2405; J2704; J3010; J3490; J7030; J7040; J7120; P9045